=== PATIENT | male | born 1970 | race Caucasian/White ===

== ENCOUNTER 2018-07-20 09:23 | Day surgery (SDC) | payer BC ==
[2018-07-16 14:37] LABS: Urine Appearance CLEAR; Urine Bilirubin NEGATIVE (NEG); Urine Blood 3+ (NEG); Urine Color YELLOW; Urine Glucose NEGATIVE (NEG); Urine Protein NEGATIVE (NEG); Urine Specific Gravity 1.015 (1.005-1.030); Urine Urobilinogen 0.2 mg/dL (0.2-1.0); Urine pH 5.5 (5.0-7.0)
[2018-07-16 14:40] LABS: Urine Microscopic Reflex ORDER UMIC
[2018-07-16 14:49] LABS: Absolute Lymphocytes (CBC) 2.5 K/uL (0.7-4.9); Absolute Monocytes 0.5 K/uL (0.1-1.3); Absolute Neutrophil 5.2 K/uL (1.8-8.0); Basophils % 0.7 % (0-1.3); Eosinophils % 0.9 % (0-4.4); Hematocrit 41.9 % (39.6-49.0); MCH 28.6 pg (27.0-35.0); MCV 85.3 fL (80-100); Monocytes % 6.1 % (3.3-12.3); RBC Red Blood Cell Count 4.91 M/uL (4.33-5.43)
[2018-07-16 14:51] LABS: Urine Amorphous Sediment TRACE /HPF (NONE SEEN); Urine Bacteria <20 /HPF (NONE SEEN); Urine Culture Reflex Order NOT NEEDED
[2018-07-16 15:03] LABS: Phosphorus 2.8 mg/dL (2.5-4.9); Potassium 4.2 mmol/L (3.5-5.1); Uric Acid 3.8 mg/dL (3.5-7.2)
--- NOTE | 2018-07-17 12:14 | EKG ---
Test Date: 2018-07-16 Test Time: 08:31:43 [employer]: LORE MEASUREMENT RESULTS: Intervals: Rate: 79 GA: 186 QRSD: 106 QT: 372 QTc: 426 [place]: P: 42 GA: 186 QRS: 15 T: 40 INTERPRETIVE STATEMENTS: Normal sinus rhythm Normal ECG Compared to ECG 06/18/1994 08:52:00 No significant changes Electronically Signed On 07-17-18 12:08:09 CDT by Juan Alfaro
[2018-07-20] MEDS ORDERED: GENTAMICIN 100 MG/100 ML BAG 100 MG/100 ML BAG IV ONE (09:45)
[2018-07-20] MEDS ORDERED: NA CHLORIDE 0.9% 1,000 ML ONE (09:45)
--- NOTE | 2018-07-20 10:16 | RAD REPORT ---
EXAM DESCRIPTION: RAD - Abdomen 1 View ([facility]) - 07/20/2018 9:55 am CLINICAL HISTORY: Preop examination, pending lithotripsy for right ureteral calculi COMPARISON: [facility] July 14 FINDINGS: Right upper quadrant calcification presumed to be a gallstone. This is stable. Punctate ca lcification right-side between the L3 and L4 transverse processes unchanged from July 14. The 2 right pelvic calcifications also unchanged in position. All of these calcifications are potentially u reteral in origin if the patient has right renal she symptoms. IMPRESSION: Two right pelvic calcifications and 1 right mid abdomen calcification, all potentially u reteral calculi. Size and position are stable from July 14
[2018-07-20] MEDS ORDERED: FENTANYL CITR 100 MCG/2 ML ONE (10:36)
[2018-07-20] MEDS ORDERED: PROPOFOL 200 MG/20 ML VIAL IV ONE (10:36)
[2018-07-20] MEDS ORDERED: LIDOCAINE 2% MPF 5 ML VIAL ONE (10:36)
[2018-07-20] MEDS ORDERED: MIDAZOLAM HCL 2 MG/2 ML INJ ONE (10:36)
[2018-07-20] MEDS ORDERED: KETOROLAC 30 MG/ML INJ ONE (11:11)
[2018-07-20] MEDS ORDERED: ONDANSETRON HCL 40 MG/20 ML VIAL ONE (11:23)
== END 2018-07-20 13:08 | disposition home or self-care (01) ==
LOC: PRE 09:23
PROVIDERS: ATTEND Urology
PROC: 0TF3XZZ Fragmentation in Right Kidney Pelvis, External Approach (ICD-10-PCS; principal; 2018-07-20 10:00)
DX: N20.2 Calculus of kidney with calculus of ureter (principal); E11.9 Type 2 diabetes mellitus without complications; I10 Essential (primary) hypertension; E78.00 Pure hypercholesterolemia, unspecified; E66.9 Obesity, unspecified; M10.9 Gout, unspecified
CPT/HCPCS: 36415; 50590; 74018; 80048; 81003; 81015; 82962; 84100; 84550; 85025; 85610; 85730; 87086; 87088; 93005; G0103; J1580; J2250; J2405; J3010; J7030